=== PATIENT | female | born 1960 | race Caucasian/White ===

== ENCOUNTER 2021-10-02 12:24 | Emergency (ER) | payer OTHER, SELFPAY ==
[2021-10-02 12:39] VITALS: BP 171/107; PULSE 80; RESP 16; TEMP 37.2; O2SAT 97; BMI 27.3
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
[2021-10-02] MEDS: CELEcoxib 200 mg Capsule 400 MG PO (13:50)
[2021-10-02 14:52] VITALS: BP 134/86; PULSE 76; RESP 16; O2SAT 96
[2021-10-02 14:54] VITALS: BP 134/86; PULSE 76; RESP 16; O2SAT 96
== END 2021-10-02 14:50 | disposition home or self-care (01) ==
PROVIDERS: Emergency Provider Nurse Practitioner Family
DX: S13.4XXA Sprain of ligaments of cervical spine, initial encounter (principal); V89.2XXA Person injured in unspecified motor-vehicle accident, traffic, initial encounter
CPT/HCPCS: 72040; 99283

== ENCOUNTER 2022-07-18 12:35 | Emergency (ER) | payer MEDICAID, SELFPAY ==
[2022-07-18 12:38] VITALS: BP 173/80; PULSE 112; RESP 16; TEMP 36.4; O2SAT 98
--- NOTE | 2022-07-18 13:04 | XRR_ITS ---
PROCEDURE INFORMATION: Exam: XR Lumbosacral Spine Exam date and time: 07/18/2022 1:23 PM Age: 62 years old Clinical indication: Injury or trauma; Fall; Blunt trauma (contusions or hematomas); Additional info: Fall injury TECHNIQUE: Imaging protocol: Radiologic exam of the lumbosacral spine. Views: 2 or 3 views. COMPARISON: No relevant prior studies available. FINDINGS: Bones/joints: There is prominent spondylosis, facet degenerative change greatest in lower spine, and degenerative disc disease. There are marginal osteophytes anterior greater than posterior. There is diffuse disc height loss. There is vacuum disc at L3-L4 and likely L4-L5. There is no evidence of acute fracture. Soft tissues: Unremarkable. Organs: There is a calcific density in the mid right abdomen which crosses out of the renal contour and therefore may not be renal in origin. This is of unknown origin. . XR/XR lumbar spine 2-3V* [id number] IMPRESSION: No evidence of acute fracture.
--- NOTE | 2022-07-18 13:04 | XRR_ITS ---
PROCEDURE INFORMATION: Exam: XR Chest Exam date and time: 07/18/2022 1:16 PM Age: 62 years old Clinical indication: Pain; Chest pressure; Additional info: Chest pain TECHNIQUE: Imaging protocol: Radiologic exam of the chest. Views: 1 view. COMPARISON: CR XR cervical spine 3V* [id number] 10/02/2021 12:56 PM FINDINGS: Lungs: No consolidation. Pleural spaces: Unremarkable. No pleural effusion. No pneumothorax. Heart/Mediastinum: No significant cardiomegaly. Bones/joints: There is spondylosis. XR/XR chest 1V portable [id number] IMPRESSION: No evidence of acute finding.
--- NOTE | 2022-07-18 13:04 | XRR_ITS ---
PROCEDURE INFORMATION: Exam: XR Thoracic Spine Exam date and time: 07/18/2022 1:23 PM Age: 62 years old Clinical indication: Injury or trauma; Fall; Blunt trauma (contusions or hematomas); Additional info: Fall injury TECHNIQUE: Imaging protocol: Radiologic exam of the thoracic spine. Views: 3 views. COMPARISON: CR (CHEST, ) 07/18/2022 1:16 PM FINDINGS: Bones/joints: Vertebral body heights are maintained. No evidence of acute fracture. Pedicles appear intact. Normal sagittal alignment. There is spondylosis and degenerative disc disease with marginal osteophytes, disc height loss, and several vacuum disc. Soft tissues: Unremarkable. Lungs: Visualized lungs are clear. XR/XR thoracic spine 3V* [id number] IMPRESSION: No evidence of acute fracture. Other findings as discussed.
--- NOTE | 2022-07-18 13:06 | ED_ITS ---
Documented by User: AUDIE Rojas 07/19/22 07:36 HPI - Back Pain/Injury General: Chief Complaint: Back Pain/Injury Stated Complaint: fall, head and rib pain Time Seen by Provider: 07/18/22 12:48 History of Present Illness: Patient is a 62-year-old female comes to the ED with chest pain. Symptoms started approximately 2 weeks ago. Patient says she was at work and she had a syncopal episode while up and walking around and fell back and hit her head. Right before syncopal episode 2 weeks ago she describes a general malaise feeling. She has been chest pain in the lower part of her chest that she rates at 3 out of 10 since fall. She states that eating foods makes the pain worse. Endorses increased belching. Chest pain radiates to her back and up into her neck. Denies any pleuritic pain. She was seen by workplace physician and diagnosed with a concussion and she says her concussion symptoms have been improving over the past 2 weeks. She reports having some lumbar and thoracic back pain since a fall as well. She rates that pain is mild and states that she does have some pain that radiates down both her legs. Endorses some nausea. Denies any history of hypertension, diabetes or elevated cholesterol. Associated symptoms: Reports nausea and syncope (Syncopal episode 2 weeks ago); Deny abdominal pain, chills, dysuria, fatigue, fever(s), hematuria or vomiting Review of Systems Const: Denies: fever(s), chills or fatigue Eyes: Denies: change in vision or eye discomfort ENMT: Denies: throat pain, odynophagia, nasal discharge or nasal congestion Card: Reports: chest pain and syncope (Syncopal episode 2 weeks ago); Denies: palpitations, edema, swelling of feet/ankles, dyspnea on exertion or orthopnea Resp: Denies: dyspnea, productive cough or non-productive cough GI: Reports: nausea, heartburn and belching; Denies: abdominal pain, vomiting, diarrhea, constipation or hematochezia : Denies: flank pain, dysuria or hematuria Musc: Reports: back pain; Denies: neck pain or extremity swelling Skin/Breast: Denies: rash or new lesions Neuro: Denies: headache(s), numbness in extremities or weakness in extremities [facility] ED PFSH: Medical History No pertinent past medical history Surgical History No pertinent past surgical history Physical Exam Const: COMMON NORMALS: no acute distress, patient oriented x3 and alert GENERAL APPEARANCE: cooperative HENMT: COMMON NORMALS: normocephalic HEAD & SCALP: normocephalic MOUTH: Normal oral and palatal mucosa present THROAT: posterior oropharynx normal and uvula midline Eye: COMMON NORMALS: Equal, round and reactive pupils present and EOMs intact bilaterally PUPIL: Yes Equal, round and reactive pupils present Neck/C-Spine: COMMON NORMALS: supple GENERAL: Yes normal visual inspection Resp: COMMON NORMALS: normal respiratory effort, No retractions, No use of accessory muscles and clear to auscultation bilaterally AUSCULTATION: clear to auscultation bilaterally Cardio: COMMON NORMALS: regular rate, regular rhythm, S1 normal heart sound present, S2 normal heart sound present, No gallops present (Cardio), No clicks present (Cardio), No murmurs present (Cardio) and Peripheral pulses 2+ throughou t RATE: regular rate RHYTHM: regular rhythm HEART SOUNDS: S1 normal heart sound present and S2 normal heart sound present PERIPHERAL PULSES: Peripheral pulses 2+ throughout GI: COMMON NORMALS: Normal to inspection, nondistended, normoactive bowel sounds present, Soft to palpation, non-tender and no masses PALPATION: Yes Soft to palpation : COMMON NORMALS: Yes no CVA tenderness BLADDER/KIDNEY EXAM: Yes no CVA tenderness Back/Pelvis: COMMON NORMALS: no CVA tenderness Extremity: COMMON NORMALS: normal to inspection Neuro: COMMON NORMALS: patient oriented x3, CN's II-XII intact bilaterally, moves all extremities, no focal motor deficits, no sensory deficits noted and gait normal SENSORIUM/ORIENTATION: Yes alert COORDINATION/BALANCE: [id number] test normal SPEECH: speech normal GAIT: Yes Normal gait present MOTOR EXAM: 5/5 motor strength present throughout COORDINATION: [id number] test normal Skin: GENERAL SKIN EXAM: dry skin Course Vital Signs: Vital signs: Vital Signs Temperature 97.5 F L 07/18/22 12:38 Pulse Rate 65 07/18/22 15:30 Respiratory Rate 29 H 07/18/22 15:30 Blood Pressure 119/69 07/18/22 15:30 Pulse Oximetry 100 07/18/22 15:30 Oxygen Delivery Me thod 07/18/22 13:46 MDM - Back Pain/Injury Medical Decision Making Patient is a 62-year-old female comes to the ED with chest pain. Symptoms started approximately 2 weeks ago. Patient says she was at work and she had a syncopal episode while up and walking around and fell back and hit her head. Right before syncopal episode 2 weeks ago she describes a general malaise feeling. She has been chest pain in the lower part of her chest that she rates at 3 out of 10 since fall. She states that eating foods makes the pain worse. Endorses increased belching. Chest pain radiates to her back and up into her neck. Denies any pleuritic pain. She was seen by workplace physician and diagnosed with a concussion and she says her concussion symptoms have been improving over the past 2 weeks. She reports having some lumbar and thoracic back pain since fall as well. Vitals are stable. Patient's exam is benign. Neuro exam shows no deficits. Labs were all unremarkable and troponin negative and EKG showed normal sinus rhythm with no ST segment elevation or depression seen. Chest x-ray, CT of head, lumbar and thoracic spine x-rays all showed no acute findings. Patient was diagnosed with noncardiac chest pain and back pain due to injury. He was stable for discharge home and told to follow-up with PCP in the next week for reevaluation. Return to ED precautions given. Patient understood and agreed with plan. Labs I reviewed the patient's lab results. 07/18/22 13:10 07/18/22 13:10 Radiology Impressions Chest X-Ray 07/18/22 13:04 IMPRESSION: No evidence of acute finding. Lumbar Spine X-Ray 07/18/22 13:04 IMPRESSION: No evidence of acute fracture. Thoracic Spine X-Ray 07/18/22 13:04 IMPRESSION: No evidence of acute fracture. Other findings as discussed. Head CT 07/18/22 13:08 IMPRESSION: 1. No evidence of acute intracranial abnormality. No acute hemorrhage. No evidence of acute infarct or mass. 2. Opacified left ostiomeatal complex with ostiomeatal complex distribution sinusitis as described. Laboratory Results WBC 13.2 10^3/uL (4.0-10.0) H 07/18/22 13:10 RBC 3.72 10^6/uL (4.1-5.3) L 07/18/22 13:10 Hgb 9.7 g/dL (11.5-15.3) L 07/18/22 13:10 Hct 31.9 % (37.0-47.0) L 07/18/22 13:10 MCV 85.8 fl (81-99) 07/18/22 13:10 MCH 26.1 pg (28.0-34.0) L 07/18/22 13:10 MCHC 30.4 g/dL (30.0-36.0) 07/18/22 13:10 RDW 13.3 % (12.1-15.1) 07/18/22 13:10 Plt Count 505 10^3/cmm (130-400) H 07/18/22 13:10 MPV 9.9 fL (7.4-10.4) 07/18/22 13:10 Neut % (Auto) 61.4 % 07/18/22 13:10 Lymph % (Auto) 28.1 % 07/18/22 13:10 Perry % (Auto) 7.7 % 07/18/22 13:10 Eos % (Auto) 0.5 % 07/18/22 13:10 Baso % (Auto) 1.1 % 07/18/22 13:10 Neut # (Auto) 8.09 10^3/uL (1.8-7.7) H 07/18/22 13:10 Lymph # (Auto) 3.7 10^3/uL (0.8-4.8) 07/18/22 13:10 Perry # (Auto) 1.0 10^3/uL (0.2-0.9) H 07/18/22 13:10 Eos # (Auto) 0.1 10^3/uL (0.0-0.8) 07/18/22 13:10 Baso # (Auto) 0.2 10^3/uL (0.0-0.1) H 07/18/22 13:10 Nucleated RBC % (auto) 0 % 07/18/22 13:10 Nucleated RBCs # 0.0 /100WBC 07/18/22 13:10 Sodium 138 mmol/L (136-145) 07/18/22 13:10 Potassium 4.1 mmol/L (3.5-5.1) 07/18/22 13:10 Chloride 100 mmol/L (98-107) 07/18/22 13:10 Carbon Dioxide 26 mmol/L (22-29) 07/18/22 13:10 Anion Gap 16.1 (5-19) 07/18/22 13:10 BUN 16 mg/dL (8-23) 07/18/22 13:10 Creatinine 0.6 mg/dL (0.5-0.9) 07/18/22 13:10 GFR Calculation 101.6 mL/min (90-130) 07/18/22 13:10 Glucose 94 mg/dL (65-115) 07/18/22 13:10 Calculated Osmolality 287 mOsm/kg (285-295) 07/18/22 13:10 Calcium 9.9 mg/dL (8.5-10.5) 07/18/22 13:10 Total Bilirubin 0.2 mg/dL (0.15-1.2) 07/18/22 13:10 AST 14 U/L (0-32) 07/18/22 13:10 ALT 7 U/L (0-33) 07/18/22 13:10 Alkaline Phosphatase 67 U/L (35-105) 07/18/22 13:10 Troponin T Baseline 6 ng/L (0-10) 07/18/22 13:10 Troponin T 120 Minute 6.00 ng/L (0-10) 07/18/22 15:00 Delta Troponin T 0 ABS# (0-10) 07/18/22 15:00 Total Protein 8.0 g/dL (6.6-8.7) 07/18/22 13:10 Albumin 4.8 g/dL (3.5-5.2) 07/18/22 13:10 Globulin 3.2 g/dL (1.3-4.6) 07/18/22 13:10 H. pylori IgG Antibody Negative (Negative) 07/18/22 13:10 EKG Data EKG 1: EKG interpretation date: 07/18/22 Interpretation: Normal sinus rhythm, 62 bpm, no ST segment elevation or depression seen. Discharge Plan Discharge Patient Disposition: Home Clinical Impression: Chest pain, non-cardiac, Back pain due to injury Condition: Stable Prescriptions: No Action Celebrex 100 mg capsule 100 mg PO BID Qty: 20 0RF cyclobenzaprine 5 mg tablet 5 mg PO TID PRN (Reason: muscle spasm) Qty: 10 0RF Discharge Orders: Discharge ED (Routine); Ordered 07/18/22 Ordered By: Landon Su Discharge Diet: Regular Discharge Activity: Increase activity as tolerated Patient Instructions: Back Pain (ED), Noncardiac Chest Pain (ED) Activity Restrictions/Additional Instructions: Follow-up with medical provider as directed in the next 5 to 7 days for reevaluation. Continue taking medications as previously prescribed. Return to the ER or your medical provider if condition worsens. Please read and understand discharge instructions. Thank you for choosing [facility] for your healthcare needs today. Please realize this is an emergency room and that we are providing you with a medical screening exam and this may not be complete and all inclusive of all the testing and or work up that you may need to determine your ailment or severity of your illness. It is very important that you follow up as instructed or that you return to the Emergency Department should you have concerns or if your condition changes or worsens in any way. Coding Level of Care Code ED Highway Patrol Officer for Chg Fwd Exam Comprehensive Documented by User: Daquan Mathis DO 07/19/22 13:21 HPI - Back Pain/Injury General: Chief Complaint: Back Pain/Injury Stated Complaint: fall, head and rib pain Time Seen by Provider: 07/18/22 12:48 [facility] ED PFSH: Medical History No pertinent past medical history Surgical History No pertinent past surgical history Course Vital Signs: Vital signs: Vital Signs Temperature 97.5 F L 07/18/22 12:38 Pulse Rate 65 07/18/22 15:30 Respiratory Rate 29 H 07/18/22 15:30 Blood Pressure 119/69 07/18/22 15:30 Pulse Oximetry 100 07/18/22 15:30 Oxygen Delivery Me thod 07/18/22 13:46 MDM - Back Pain/Injury Medical Decision Making Patient is a 62-year-old female comes to the ED with chest pain. Symptoms started approximately 2 weeks ago. Patient says she was at work and she had a syncopal episode while up and walking around and fell back and hit her head. Right before syncopal episode 2 weeks ago she describes a general malaise feeling. She has been chest pain in the lower part of her chest that she rates at 3 out of 10 since fall. She states that eating foods makes the pain worse. Endorses increased belching. Chest pain radiates to her back and up into her neck. Denies any pleuritic pain. She was seen by workplace physician and diagnosed with a concussion and she says her concussion symptoms have been improving over the past 2 weeks. She reports having some lumbar and thoracic back pain since fall as well. Vitals are stable. Patient's exam is benign. Neuro exam shows no deficits. Labs were all unremarkable and troponin negative and EKG showed normal sinus rhythm with no ST segment elevation or depression seen. Chest x-ray, CT of head, lumbar and thoracic spine x-rays all showed no acute findings. Patient was diagnosed with noncardiac chest pain and back pain due to injury. He was stable for discharge home and told to follow-up with PCP in the next week for reevaluation. Return to ED precautions given. Patient understood and agreed with plan. Chart reviewed and patient discussed with midlevel. Agree with assessment and plan. Labs 07/18/22 13:10 07/18/22 13:10 Radiology Impressions Chest X-Ray 07/18/22 13:04 IMPRESSION: No evidence of acute finding. Lumbar Spine X-Ray 07/18/22 13:04 IMPRESSION: No evidence of acute fracture. Thoracic Spine X-Ray 07/18/22 13:04 IMPRESSION: No evidence of acute fracture. Other findings as discussed. Head CT 07/18/22 13:08 IMPRESSION: 1. No evidence of acute intracranial abnormality. No acute hemorrhage. No evidence of acute infarct or mass. 2. Opacified left ostiomeatal complex with ostiomeatal complex distribution sinusitis as described. Laboratory Results WBC 13.2 10^3/uL (4.0-10.0) H 07/18/22 13:10 RBC 3.72 10^6/uL (4.1-5.3) L 07/18/22 13:10 Hgb 9.7 g/dL (11.5-15.3) L 07/18/22 13:10 Hct 31.9 % (37.0-47.0) L 07/18/22 13:10 MCV 85.8 fl (81-99) 07/18/22 13:10 MCH 26.1 pg (28.0-34.0) L 07/18/22 13:10 MCHC 30.4 g/dL (30.0-36.0) 07/18/22 13:10 RDW 13.3 % (12.1-15.1) 07/18/22 13:10 Plt Count 505 10^3/cmm (130-400) H 07/18/22 13:10 MPV 9.9 fL (7.4-10.4) 07/18/22 13:10 Neut % (Auto) 61.4 % 07/18/22 13:10 Lymph % (Auto) 28.1 % 07/18/22 13:10 Perry % (Auto) 7.7 % 07/18/22 13:10 Eos % (Auto) 0.5 % 07/18/22 13:10 Baso % (Auto) 1.1 % 07/18/22 13:10 Neut # (Auto) 8.09 10^3/uL (1.8-7.7) H 07/18/22 13:10 Lymph # (Auto) 3.7 10^3/uL (0.8-4.8) 07/18/22 13:10 Perry # (Auto) 1.0 10^3/uL (0.2-0.9) H 07/18/22 13:10 Eos # (Auto) 0.1 10^3/uL (0.0-0.8) 07/18/22 13:10 Baso # (Auto) 0.2 10^3/uL (0.0-0.1) H 07/18/22 13:10 Nucleated RBC % (auto) 0 % 07/18/22 13:10 Nucleated RBCs # 0.0 /100WBC 07/18/22 13:10 Sodium 138 mmol/L (136-145) 07/18/22 13:10 Potassium 4.1 mmol/L (3.5-5.1) 07/18/22 13:10 Chloride 100 mmol/L (98-107) 07/18/22 13:10 Carbon Dioxide 26 mmol/L (22-29) 07/18/22 13:10 Anion Gap 16.1 (5-19) 07/18/22 13:10 BUN 16 mg/dL (8-23) 07/18/22 13:10 Creatinine 0.6 mg/dL (0.5-0.9) 07/18/22 13:10 GFR Calculation 101.6 mL/min (90-130) 07/18/22 13:10 Glucose 94 mg/dL (65-115) 07/18/22 13:10 Calculated Osmolality 287 mOsm/kg (285-295) 07/18/22 13:10 Calcium 9.9 mg/dL (8.5-10.5) 07/18/22 13:10 Total Bilirubin 0.2 mg/dL (0.15-1.2) 07/18/22 13:10 AST 14 U/L (0-32) 07/18/22 13:10 ALT 7 U/L (0-33) 07/18/22 13:10 Alkaline Phosphatase 67 U/L (35-105) 07/18/22 13:10 Troponin T Baseline 6 ng/L (0-10) 07/18/22 13:10 Troponin T 120 Minute 6.00 ng/L (0-10) 07/18/22 15:00 Delta Troponin T 0 ABS# (0-10) 07/18/22 15:00 Total Protein 8.0 g/dL (6.6-8.7) 07/18/22 13:10 Albumin 4.8 g/dL (3.5-5.2) 07/18/22 13:10 Globulin 3.2 g/dL (1.3-4.6) 07/18/22 13:10 H. pylori IgG Antibody Negative (Negative) 07/18/22 13:10 Discharge Plan Discharge Patient Disposition: Home Clinical Impression: Chest pain, non-cardiac, Back pain due to injury Condition: Stable Prescriptions: No Action Celebrex 100 mg capsule 100 mg PO BID Qty: 20 0RF cyclobenzaprine 5 mg tablet 5 mg PO TID PRN (Reason: muscle spasm) Qty: 10 0RF Discharge Orders: Discharge ED (Routine); Ordered 07/18/22 Ordered By: Landon Su Discharge Diet: Regular Discharge Activity: Increase activity as tolerated Patient Instructions: Back Pain (ED), Noncardiac Chest Pain (ED) Activity Restrictions/Additional Instructions: Follow-up with medical provider as directed in the next 5 to 7 days for reevaluation. Continue taking medications as previously prescribed. Return to the ER or your medical provider if condition worsens. Please read and understand discharge instructions. Thank you for choosing [facility] for your healthcare needs today. Please realize this is an emergency room and that we are providing you with a medical screening exam and this may not be complete and all inclusive of all the testing and or work up that you may need to determine your ailment or severity of your illness. It is very important that you follow up as instructed or that you return to the Emergency Department should you have concerns or if your condition changes or worsens in any way. Coding Level of Care Code ED Highway Patrol Officer for Jo Marks Exam Comprehensive
--- NOTE | 2022-07-18 13:08 | CTR_ITS ---
PROCEDURE INFORMATION: Exam: CT Head Without Contrast Exam date and time: 07/18/2022 1:16 PM Age: 62 years old Clinical indication: Syncope and collapse; Additional info: Syncopal episode 2 weeks ago and fell hitting head TECHNIQUE: Imaging protocol: Computed tomography of the head without contrast. Radiation optimization: All CT scans at this facility use at least one of these dose optimization techniques: automated exposure control; mA and/or kV adjustment per patient size (includes targeted exams where dose is matched to clinical indication); or iterative reconstruction. COMPARISON: CR XR cervical spine 3V* [id number] 10/02/2021 12:56 PM RADIATION DOSE METRICS: Total DLP (mGy-cm): 1039.49 FINDINGS: Brain: There is no acute intracranial hemorrhage. No extra-axial fluid collection. No evidence of acute infarct. Gonzalez white differentiation is intact. There is no evidence of mass. There is no mass effect or midline shift. Cerebral ventricles: No ventriculomegaly. Paranasal sinuses: Maxillary sinus is incompletely visualized and is completely opacified as visualized. There is nearly opacified left anterior ethmoid air cells and mucosal thickening and small amount of fluid in left frontal sinus. There is opacification of left ostiomeatal complex. Mastoid air cells: No significant mastoid effusion. Bones/joints: No acute fracture. Soft tissues: Unremarkable as visualized. CT/CT head wo con* [id number] IMPRESSION: 1. No evidence of acute intracranial abnormality. No acute hemorrhage. No evidence of acute infarct or mass. 2. Opacified left ostiomeatal complex with ostiomeatal complex distribution sinusitis as described.
[2022-07-18 13:28] LABS: Basophils # 0.2 10^3/uL (0.0-0.1); Basophils % 1.1 %; Eosinophils # 0.1 10^3/uL (0.0-0.8); Eosinophils % 0.5 %; Hematocrit 31.9 % (37.0-47.0); Hemoglobin 9.7 g/dL (11.5-15.3); Lymphocytes # 3.7 10^3/uL (0.8-4.8); Lymphocytes % 28.1 %; Mean Corpuscular HGB Conc 30.4 g/dL (30.0-36.0); Mean Corpuscular Hemoglobin 26.1 pg (28.0-34.0); Mean Corpuscular Volume 85.8 fl (81-99); Mean Platelet Volume 9.9 fL (7.4-10.4); Monocytes % 7.7 %; Neutrophils # 8.09 10^3/uL (1.8-7.7); Neutrophils % 61.4 %; Nucleated Red Blood Cells % 0 %; Platelet Count 505 10^3/cmm (130-400); Red Blood Count 3.72 10^6/uL (4.1-5.3); Red Cell Distribution Width 13.3 % (12.1-15.1); White Blood Count 13.2 10^3/uL (4.0-10.0)
--- NOTE | 2022-07-18 13:43 | ECG_ITS ---
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 Measurements Intervals [place] Rate: 62 P: 22 NE: 157 QRS: 35 QRSD: 85 T: 33 QT: 384 QTc: 390 Interpretive Statements SINUS RHYTHM No previous ECG available for comparison Electronically Signed On 07-18-2022 20:04:58 UNIT MANAGER RN by Laurel Msua M.D. [id number]
[2022-07-18 13:46] VITALS: PULSE 66; RESP 21
[2022-07-18 13:50] LABS: Alanine Aminotransferase 7 U/L (0-33); Albumin Level 4.8 g/dL (3.5-5.2); Alkaline Phosphatase 67 U/L (35-105); Aspartate Amino Transferase 14 U/L (0-32); Blood Urea Nitrogen 16 mg/dL (8-23); Calcium 9.9 mg/dL (8.5-10.5); Carbon Dioxide 26 mmol/L (22-29); Chloride 100 mmol/L (98-107); Globulin 3.2 g/dL (1.3-4.6); Glomerular Filtration Rate 101.6 mL/min (90-130); Glucose 94 mg/dL (65-115); Osmolality Calculated 287 mOsm/kg (285-295); Sodium 138 mmol/L (136-145); Total Bilirubin 0.2 mg/dL (0.15-1.2)
[2022-07-18 13:51] LABS: Troponin(5th) Baseline 6 ng/L (0-10)
[2022-07-18] MEDS: aspirin 81 mg Chew Tablet 324 MG PO (13:53)
[2022-07-18] MEDS: lidocaine 2% viscous 15 ML, aluminum-mag hydrox-simethicon 30 ML, sucralfate oral liq 1 GM PO (13:53)
[2022-07-18 14:00] VITALS: BP 119/69; PULSE 70; RESP 21; O2SAT 99
[2022-07-18 14:30] VITALS: BP 119/69; PULSE 73; RESP 14; O2SAT 100
[2022-07-18 14:42] LABS: Anion Gap 16.1 (5-19); Potassium 4.1 mmol/L (3.5-5.1)
[2022-07-18 15:00] VITALS: BP 119/69; PULSE 67; RESP 14; O2SAT 100
[2022-07-18] MEDS: orphenadrine 30 mg/mL Inj 2 mL 60 MG IVP (15:13)
[2022-07-18] MEDS: ketorolac 30 mg/mL INJ IVP (15:13)
[2022-07-18 15:25] LABS: H. Pylori IgG Antibody Negative (Negative)
[2022-07-18 15:30] VITALS: BP 119/69; PULSE 65; RESP 29; O2SAT 100
[2022-07-18 16:18] LABS: Troponin 5 2HR Delta 0 ABS# (0-10)
== END 2022-07-18 15:58 | disposition home or self-care (01) ==
PROVIDERS: Emergency Provider Physician Assistant
DX: R07.89 Other chest pain (principal); M54.9 Dorsalgia, unspecified
CPT/HCPCS: 36415; 70450; 71045; 72072; 72100; 80053; 84484; 85025; 86677; 93005; 96374; 96375; 99285; J1885; J2360